=== PATIENT | male | born 1965 | race Caucasian/White ===

== ENCOUNTER → 2019-06-08 | Outpatient (CLI) | payer SELFPAY ==
[~2019-06-08] MED LIST: VICO10300 PO
== END | disposition home or self-care (01) ==
LOC: US 12:39
DX: N43.2 Other hydrocele (principal); Q55.29 Other congenital malformations of testis and scrotum

== ENCOUNTER 2021-11-02 14:14 | Emergency (ER) | payer SELFPAY ==
[~2021-11-02] VITALS: Ht 175.2 cm; Wt 127.0 kg
[2021-11-02 14:47] LABS: BASO # 0.1 10*3/uL (0.0-0.1); BASO % 0.6 % (0.0-1.0); EOS # 0.3 10*3/uL (0.0-0.4); HEMATOCRIT 47.6 % (42.0-52.0); LYMPH % 13.9 % (27.0-41.0); MEAN CORPUSCULAR HGB 33.3 pg (27.0-31.0); MEAN CORPUSCULAR HGB CONC 33.6 g/dl (33.0-37.0); MEAN PLATELET VOLUME 11.3 fl (9.6-12.3); MONO # 1.4 10*3/uL (0.1-1.0); MONO % 9.6 % (3.0-9.0); NEUT # 10.5 10*3/uL (2.3-7.9); NEUT % 73.4 % (47.0-73.0); PLATELET COUNT AUTOMATED 197 10*3/uL (130-400); RED BLOOD COUNT 4.81 10*6/uL (4.50-5.90); RED CELL DISTRI WIDTH 13.9 % (0-14.5); WHITE BLOOD COUNT 14.2 10*3/uL (4.8-10.8)
[2021-11-02 15:06] LABS: ALKALINE PHOSPHATASE 68 U/L (45-117); BUN 11 mg/dl (7-24); CHLORIDE 106 mmol/L (98-107); CREATININE 1.43 mg/dL (0.70-1.30); LIPASE 78 U/L (73-393); POTASSIUM 3.8 mmol/L (3.5-5.1); SGOT/AST 37 IU/L (3-35); SGPT/ALT 56 U/L (12-78); SODIUM 137 mmol/L (136-145); TOTAL PROTEIN 7.8 gm/dL (6.4-8.2)
[2021-11-02] MEDS ORDERED: FLOMAX0.4 MG PO (15:52)
[2021-11-02] MEDS ORDERED: REGLAN10 M1 PO (15:52)
[2021-11-02] MEDS ORDERED: HYDROCODONE-AC1 EAC1 PO (15:52)
== END 2021-11-02 16:05 | disposition home or self-care (01) ==
LOC: ED 14:14
PROVIDERS: Emergency Medicine
DX: N23 Unspecified renal colic (principal)